=== PATIENT | female | born 1965 | race Caucasian/White ===

== ENCOUNTER 2023-11-24 20:23 | Emergency (ER) | payer OTHER ==
--- NOTE | 2023-11-24 21:17 | ERPHSYRPT ---
- History of Present Illness Time Seen by Provider: 11/24/23 21:17 Historian: patient Exam Limitations: no limitations Physician History: This is a 58-year-old white female patient who presents to the emergency department by private vehicle and complaint of severe heartburn in the subxiphoid caudal sternal region without radiation. It is a burning sensation and localized. She has had this in the distant past and it was treated with Protonix which helped with relieving her symptoms. She has run out of her Protonix and since that time, which has been several years, she has intermittent episodes that last only 2 to 3 hours and then completely resolves on on their own. However, today at noon, the symptoms have persisted and she became concerned. I have examined the patient and obtained a history from her. She had just received a phone call from a family member and she has to leave immediately. We did provide the patient with GI cocktail, IV Protonix and obtain a twelve-lead EKG which I interpreted. However, the patient wishes to leave AGAINST MEDICAL ADVICE. Timing/Duration: today Activities at Onset: none Quality: burning Abdominal Pain Onset Location: other (Caudal sternum and subxiphoid region) Pain Radiation: no radiation Severity of Pain-Max: moderate Severity of Pain-Current: moderate Modifying Factors: Improves With: other (The GI cocktail we provided her on arrival has helped relieve most of her symptoms) Associated Symptoms: chest pain (Describes it as heartburn), No fatigue, No headache, No weakness Previous symptoms: same symptoms as today, no recent treatment Allergies/Adverse Reactions: onion Allergy (Unknown, Verified 11/24/23 21:17) codeine Adverse Reaction (Intermediate, Verified 11/24/23 21:17) Stomach Pain Travel Risk - International Travel Have you traveled outside of the country in past 3 weeks: No - Emerging Infectious Disease Are you exhibiting symptoms associated with any current EIDs: No - Review of Systems Constitutional: No Symptoms Eyes: No Symptoms Ears, Nose, & Throat: No Symptoms Respiratory: No Symptoms Cardiac: Chest Pain (Describes it as burning heartburn caudal sternum and subxiphoid region) Abdominal/Gastrointestinal: No Symptoms Genitourinary Symptoms: No Symptoms Musculoskeletal: No Symptoms Skin: No Symptoms Neurological: No Symptoms Psychological: No Symptoms Endocrine: No Symptoms Hematologic/Lymphatic: No Symptoms Immunological/Allergic: No Symptoms All Other Systems: Reviewed and Negative - Past Medical History Pertinent Past Medical History: Yes - Past Surgical History Past Surgical History: Yes - Nursing Vital Signs Nursing Vital Signs: Initial Vital Signs Temperature 97.4 F 11/24/23 21:17 Pulse Rate 87 11/24/23 21:17 Respiratory Rate 16 11/24/23 21:17 Blood Pressure 130/67 11/24/23 21:17 O2 Sat by Pulse Oximetry 98 11/24/23 21:17 Pain Scale Pain Intensity 7 - Physical Exam General Appearance: no apparent distress, alert, anxiety, thin Eye Exam: PERRL/EOMI, eyes nml inspection Ears, Nose, Throat Exam: normal ENT inspection, moist mucous membranes Neck Exam: normal inspection, non-tender, supple, full range of motion Respiratory Exam: normal breath sounds, lungs clear, airway intact, No chest tenderness, No respiratory distress Cardiovascular Exam: regular rate/rhythm, normal heart sounds, normal peripheral pulses Gastrointestinal/Abdomen Exam: soft, normal bowel sounds, No tenderness Rectal Exam: not done Back Exam: normal inspection, normal range of motion, No CVA tenderness, No vertebral tenderness Extremity Exam: normal inspection, normal range of motion, pelvis stable Neurologic Exam: alert, oriented x 3, cooperative, 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, nml cerebellar function, nml station & gait, sensation nml Skin Exam: normal color, warm, dry Lymphatic Exam: No adenopathy SpO2 Interpretation: normal O2 Delivery: Room Air - Course Nursing assessment & vital signs reviewed: Yes Ordered Tests: Active Orders 24 hr Category Date Time Status EKG-ER Only STAT Care 11/24/23 22:11 Ordered IV Insertion STAT Care 11/24/23 22:11 Ordered AMYLASE Stat Lab 11/24/23 22:11 Ordered CBC W DIFF Stat Lab 11/24/23 22:11 Ordered CMP Stat Lab 11/24/23 22:11 Ordered LIPASE Stat Lab 11/24/23 22:11 Ordered TROPONIN Q4H Lab 11/24/23 22:15 Ordered TROPONIN Q4H Lab 11/25/23 02:15 Ordered TROPONIN Q4H Lab 11/25/23 06:15 Ordered Medication Summary Discontinued Medications Generic Name Dose Route Start Last Admin Trade Name Freq PRN Reason Stop Dose Admin Al Hydrox/Mg Hydrox/Simethicone Confirm 11/24/23 21:38 Mag Hydrox/Al Hydrox/Simeth 30 Ml Udcup Administered 11/24/23 21:39 Dose 30 ml .ROUTE .STK-MED ONE Lidocaine HCl Confirm 11/24/23 21:38 Lidocaine Hcl 2% Viscous 15 Ml Udcup Administered 11/24/23 21:39 Dose 15 ml .ROUTE .STK-MED ONE Magnesium Hydroxide 45 ml 11/24/23 21:42 11/24/23 21:43 Mag Hydrx/Alum Hyd/Simeth/Lido 45 Ml Bottle PO 11/24/23 21:43 45 ml STAT ONE Administration Pantoprazole Sodium 40 mg 11/24/23 21:56 11/24/23 21:59 Pantoprazole 40 Mg Vial IV 11/24/23 21:57 40 mg STAT ONE Administration Pantoprazole Sodium Confirm 11/24/23 21:57 Pantoprazole 40 Mg Vial Administered 11/24/23 21:58 Dose 40 mg IV .STK-MED ONE - Progress Progress: improved, pain not gone completely Progress Note: 11/24/23 22:22 My medical decision making and the assignment of moderate complexity to this patient's medical issue today is based on review of the patient's past medical history, review of the patient's medication list, review patient drug allergy list, history present illness and physical findings on examination. The workup in this patient includes placement of intravenous line, CBC, CMP, troponin level, twelve-lead EKG, D-dimer level, magnesium level. , The differential diagnosis in this patient includes but is not limited to m yocardial infarction, gastroesophageal reflux disease, gastritis, gastric ulcer disease, pulmonary embolus. The patient received a phone call from her daughter who is in distress. There is a significant family crisis per patient. Patient states she has to leave AGAINST MEDICAL ADVICE. We discussed the need for her to stay to complete her workup. She states that she cannot stay. She was advised of the risk of worsening condition and possible . She states she does understand and desires to leave and will sign the AGAINST MEDICAL ADVICE form. Counseled pt/family regarding: need for follow-up - Departure Departure Disposition: AMA Clinical Impression: Heartburn Condition: Stable Critical Care Time: No Additional Instructions: Return to the emergency department if symptoms persist or worsen. Call your primary care provider tomorrow, 11/25/2023 to make arranges for follow-up appointment for further evaluation management. Prescriptions: PANTOPRAZOLE 40 mg Tablet [Protonix 40MG Tablet] 40 mg PO QPM #20 tab
[2023-11-24 21:27] VITALS: RESP 16; TEMP 97.4
[2023-11-24] MEDS ORDERED: XYLOCAINE VISCOUS 2% 15 ML CUP ONE (21:38)
[2023-11-24] MEDS ORDERED: MAALOX ES 30 ML UNIT DOSE ONE (21:38)
[2023-11-24] MEDS: GI COCKTAIL 45 ML (Maalox/Lidocaine) PO ONE (21:43)
[2023-11-24] MEDS ORDERED: PROTONIX 40 MG IV IV ONE (21:57)
[2023-11-24] MEDS: PROTONIX 40 MG IV IV ONE (21:59)
[2023-11-24 22:22] LABS: Absolute Neutrophil Ct (ANC) 5.09 x10^3/uL (1.56-6.13); BASOPHIL % 0.6 % (0.1-1.2); Basophil (Absolute #) 0.06 x10^3/uL (0.01-0.08); Eosinophil % 2.5 % (0.7-5.8); Eosinophil (Absolute #) 0.25 x10^3/uL (0.04-0.36); Hematocrit 41.8 % (34.1-44.9); Hemoglobin 13.9 g/dL (11.2-15.7); IMMATURE GRAN # 0.03 x10^3u/L (0.001-0.031); IMMATURE GRAN % 0.3 % (0.001-0.429); Lymphocyte (Absolute #) 4.12 x10^3/uL (1.18-3.74); Lymphocytes % 40.5 % (19.3-51.7); Mean Cell Volume 89.3 fL (79.4-94.8); Mean Corpuscular Hemoglobin 29.7 pg (25.6-32.2); Mean Corpuscular Hgb Concent. 33.3 g/dL (32.2-35.5); Monocyte (Absolute #) 0.62 x10^3/uL (0.24-0.86); Monocytes % 6.1 % (4.7-12.5); Platelet Count 284 x10^3/uL (182-369); Red Blood Count 4.68 x10^6/uL (3.93-5.22); Red Cell Distribution Width 13.3 % (11.7-14.4); White Blood Count 10.2 x10^3/uL (3.98-10.04)
[2023-11-24 22:35] VITALS: BP 118/71; PULSE 76; O2SAT 97
[2023-11-24 22:36] LABS: ALBUMIN 4.3 g/dL (3.5-5.0); ANION GAP 8.6 MEQ/L (5-15); BILIRUBIN,TOTAL 0.6 mg/dL (0.2-1.3); Calcium 9.8 mg/dL (8.4-10.2); Creatinine 1 0.57 mg/dL (0.52-1.04); EST GLOMERULAR FILTRATION RATE 104.6 ML/MIN; Total Protein 7.2 g/dL (6.3-8.2)
== END 2023-11-24 22:31 | disposition left against medical advice (07) ==
LOC: ED 20:23
DX: R12 Heartburn (principal); R07.9 Chest pain, unspecified
CPT/HCPCS: 36000; 36415; 80053; 82150; 83690; 84484; 85025; 93005; 96374; 99284; A9270-GY